=== PATIENT | female | born 1980 | race Caucasian/White ===

== ENCOUNTER 2017-07-11 18:09 | Emergency (ER) | payer SELFPAY ==
[2017-07-11 18:16] VITALS: BP 114/73; BMI 33.3
--- NOTE | 2017-07-11 18:40 | DR.GENAD ---
HPI - PCP Primary Care Physician: nfd - Complaint/Symptoms Chief Complaint Doctors Comments: Patient states that she was trying to prevent a person from falling and injured her back in the effort. Chief Complaint:: pt states" i have 3 pinched disc in my lower back, yesterday my mother n law was falling and i picked her up. since then my back has been killing me" - Source History Provided: Patient - Mode of Arrival Mode of Arrival: Ambulatory - Timing Onset of Chief Complaint: 07/10/17 PMH - PMH Past Medical History: No Past Medical History: Anemia, Asthma, COPD, Kidney Stones, Seizures Past Surgical History: Yes Surgical History: Abdominal Surgery, - Family History History of Family Medical Conditions: Yes Family Medical History: Diabetes Mellitus, Cancer, ID - Social History Type of Tobacco Use: Cigarettes Does any household member use tobacco: Yes Alcohol Use: None Do you use any recreational Drugs:: No Lives With: Family Lives Where: Home - infectious screening In the last 2 months have you had wt loss of >10#?: NO Have you had fever, night sweats or hemotysis?: No Have you traveled outside the country in the last 6 months?: No Isolation: Standard ROS - Review of Systems Eyes: No Symptoms Reported ENTM: No Symptoms Reported Respiratoy: No Symptoms Reported Cardiovascular: No Symptoms Reported Gastrointestinal/Abdominal: No Symptoms Reported Genitourinary: No Symptoms Reported Neurological: No Symptoms Reported Musculoskeletal: No Symptoms Reported Integumentary: No Symptoms Reported Hematologic/Lymphatic: No Symptoms Reported Endocrine: No Symptoms Reported Psychiatric: No Symptoms Reported All Other Systems: Reviewed and Negative PE - Vital Signs Vitals: Temperature 98.2 F Pulse Rate 63 Respiratory Rate 20 Blood Pressure [Right Arm] 139/72 Blood Pressure 114/73 O2 Sat by Pulse Oximetry 99 - General General Appearance: Alert, In No Apparent Distress - Head Head Exam: Normal Inspection, Atraumatic - Eyes Eye exam: Normal Appearance, PERRL, EOMI - ENT ENT Exam: Normal Exam External Ear Exam: Normal External Inspection TM/Canal Exam: Bilateral Normal Nose Exam: Normal Nose Exam Mouth Exam: Normal Inspection Throat Exam: Normal Inspection - Neck Neck Exam: Normal Inspection, Full ROM - Chest Chest Inspection: Normal Inspection, Symmetric Chest Wall Rise - Respiratory Respiratory Exam: Normal Lung Sounds Bilat Respiratory Exam: Bilateral Clear to Auscultation - Cardiovascular Cardiovascular Exam: Regular Rate, Normal Rhythm - Abdominal Exam Abdominal Exam: Normal Inspection, Normal Bowel Sounds Abdominal Tenderness: negative: RUQ, RLQ, LUQ, LLQ, Epigastrium, Suprapubic, Diffuse, Mild, Moderate, Severe, Other - Extremities Extremities Exam: Normal Inspection, Full ROM, Other (straight leg raising both legs to 45 degrees w/o pain) - Back Back Exam: Normal Inspection, Tenderness (low lumbar area) - Neurologic Neurological Exam: Alert, Oriented X3, CN II-XII Intact - Psychiatric Psychiatric Exam: Normal Affect - Skin Skin Exam: Warm, Dry, Intact Course - Education/Counseling Education/Counseling: Education Educated On: Treatment, Diagnosis ROR - XRAY XRAY Interpreted by: Radiologist (Lumbar: Minimal discogenic degenerative disease at L4-5 and L5-S1. No acute lumbar spine fracture or subluxation) - Diagnosis Discharge Problem: Back pain at L4-L5 level - Discharge Plan Condition: Stable - Follow ups/Referrals Follow ups/Referrals: [facility],None [Primary Care Provider] - 3 days - Instructions
[2017-07-11] MEDS ORDERED: DEMEROL INJ IM ONE (18:42)
[2017-07-11] MEDS ORDERED: DEMEROL INJ ONE (18:50)
--- NOTE | 2017-07-11 20:05 | RAD ---
Lumbar spine, AP and lateral Indication: Back pain after recent injury Findings: Lumbar spine alignment is normal. There is no evidence for acute cortical disruption or sig nificant vertebral body height loss. There is minimal disc space narrowing with tiny marginal osteoph ytes at L4-5 and L5-S1. Facet joints are grossly maintained. The SI joints appear normal. Impression: No acute lumbar spine fracture or subluxation. Minimal discogenic degenerative disease at L4-5 and L5-S1. Reported By:
== END 2017-07-11 20:35 | disposition home or self-care (01) ==
LOC: ER 18:19
DX: M54.5 Low back pain (principal)
CPT/HCPCS: 72100; 96372; 99282; J2175